=== PATIENT | male | born 1965 | race Caucasian/White ===

== ENCOUNTER 2020-02-22 12:11 | Inpatient (IN) ==
[2020-02-22] MEDS ORDERED: Naloxone 0.4 MG/ML INJ IVP PRN (18:45)
[2020-02-22 19:50] LABS: Basophils # 0.1 K/mcL (0.0-0.2); Basophils % 0.6 %; Eosinophils # 0.1 K/mcL (0.0-0.6); Eosinophils % 0.9 %; Hemoglobin 11.8 g/dL (12.9-16.9); Immature Granulocytes % 0.3 % (0-4); Lymphocytes # 2.2 K/mcL (0.6-4.6); Lymphocytes % 20.8 %; Mean Corpuscular HGB Conc 30.3 g/dL (31.6-35.5); Mean Corpuscular Hemoglobin 23.2 pg (28.0-33.3); Mean Corpuscular Volume 76.8 fL (83.0-100.0); Mean Platelet Volume 10.9 fL (9.4-12.4); Monocytes # 1.3 K/mcL (0.0-1.3); Monocytes % 12.2 %; Neutrophils # 6.9 K/mcL (1.6-8.9); Nucleated Red Blood Cells 0.2 /100 WBC (0); Platelet Count 339 K/mcL (140-400); Red Blood Count 5.08 M/mcL (4.19-5.50); Red Cell Distribution Width 17.7 % (11.5-14.5); Segmented Neutrophils % 65.2 %; White Blood Count 10.6 K/mcL (4.3-11.1)
[2020-02-22 20:03] LABS: INR 5.4; Prothrombin Time 59.6 Seconds (9.4-12.1)
[2020-02-22 20:12] LABS: Albumin 3.7 g/dL (3.5-5.7); Albumin/Globulin Ratio 1.3 (1.1-2.2); BUN/Creatinine Ratio 27 (6-26); Bilirubin,Indirect 2.9 mg/dL (0.0-1.0); Bilirubin,Total 3.9 mg/dL (0.3-1.0); Blood Urea Nitrogen 57 mg/dL (6-20); Calcium 9.4 mg/dL (8.6-10.3); Carbon Dioxide 22 mEq/L (23-29); Chloride 94 mEq/L (98-107); Globulin 2.8 g/dL (2.4-3.5); Glucose 130 mg/dL (70-105); Osmolality,Calculated 288 (280-300); Potassium 5.7 mEq/L (3.5-5.1); Sodium 130 mEq/L (136-145); Total Protein 6.5 g/dL (6.4-8.9); eGFR For African Americans 40 (> 60); eGFR For Non-African Americans 33 (> 60)
[2020-02-22 20:50] LABS: Acetaminophen < 10 mcg/mL (10-20); Magnesium 2.4 mg/dL (1.6-2.6)
[2020-02-22] MEDS ORDERED: Insulin Human Regular 10 UNIT in 0.9 % Sodium Chloride 10 ML IV ONE (21:57)
[2020-02-22] MEDS ORDERED: *HR* Dextrose 50 % in Water (Vial) 50 ML VIAL IVP ONE (21:58)
[2020-02-22] MEDS: Lactulose Oral Soln 20 GM/30 ML UDC PO STA ×2 (21:59→22:02)
[2020-02-22 23:47] LABS: Hepatitis B Core IgM Nonreactive (Nonreactive)
[2020-02-22 23:48] LABS: Hepatitis C Virus Antibody Nonreactive (Nonreactive)
[2020-02-22 23:49] LABS: Hepatitis A Antibody IgM Nonreactive (Nonreactive)
[2020-02-22 23:50] LABS: Hepatitis B Surface Antigen Nonreactive (Nonreactive)
[2020-02-23 00:42] LABS: Adenovirus Not Detected (Not Detect); Bordetella Pertussis Not Detected (Not Detect); Chlamydophila pneumoniae Not Detected (Not Detect); Coronavirus 229E Not Detected (Not Detect); Coronavirus HKU1 Not Detected (Not Detect); Coronavirus NL63 Not Detected (Not Detect); Coronavirus OC43 Not Detected (Not Detect); Human Metapneumovirus Not Detected (Not Detect); Human Rhinovirus/Enterovirus Not Detected (Not Detect); Influenza A Subtype 2009 H1 Not Detected (Not Detect); Influenza B Not Detected (Not Detect); Mycoplasma pneumoniae Not Detected (Not Detect); Parainfluenza Virus 1 Not Detected (Not Detect); Parainfluenza Virus 2 Not Detected (Not Detect); Parainfluenza Virus 3 Not Detected (Not Detect); Parainfluenza Virus 4 Not Detected (Not Detect); Respiratory Syncytial Virus Not Detected (Not Detect); SARS-CoV-2 Not Detected (Not Detect)
[2020-02-23 01:05] LABS: Basophils % 0.4 %; Eosinophils % 0.4 %; Hematocrit 34.6 % (37.5-50.1); Hemoglobin 10.4 g/dL (12.9-16.9); Immature Granulocytes % 0.4 % (0-4); Lymphocytes # 1.7 K/mcL (0.6-4.6); Lymphocytes % 17.7 %; Mean Corpuscular HGB Conc 30.1 g/dL (31.6-35.5); Mean Corpuscular Hemoglobin 22.7 pg (28.0-33.3); Mean Corpuscular Volume 75.5 fL (83.0-100.0); Mean Platelet Volume 10.9 fL (9.4-12.4); Monocytes # 1.5 K/mcL (0.0-1.3); Monocytes % 15.1 %; Neutrophils # 6.4 K/mcL (1.6-8.9); Platelet Count 296 K/mcL (140-400); Red Blood Count 4.58 M/mcL (4.19-5.50); Red Cell Distribution Width 17.2 % (11.5-14.5); White Blood Count 9.6 K/mcL (4.3-11.1)
[2020-02-23 01:23] LABS: INR 4.8; Prothrombin Time 52.7 Seconds (9.4-12.1)
[2020-02-23 01:24] LABS: Calcium 9.1 mg/dL (8.6-10.3); Potassium 4.6 mEq/L (3.5-5.1)
[2020-02-23] MEDS: hydrOXYzine pamoate 25 MG CAPSULE PO PRN ×3 (04:05→21:30)
[2020-02-23 07:31] LABS: Calcium 9.1 mg/dL (8.6-10.3); Potassium 4.8 mEq/L (3.5-5.1)
[2020-02-23] MEDS: Albumin 25% 25gram/100mL 25 GM/100 ML IV.SOLN IVPB SCH ×2 (11:04→16:49)
[2020-02-23 12:05] LABS: Bilirubin,Urine Negative (Negative); Blood,Urine Negative (Negative); Clarity,Urine Clear (Clear); Color,Urine Yellow (Yellow); Glucose,Urine (UA) Normal (Normal); Ketones,Urine Negative (Negative); Leukocyte Esterase,Urine Negative (Negative); Nitrite,Urine Negative (Negative); PH,Urine 5.5 pH Units (5.0-8.0); Protein,Urine Trace mg/dL (Neg-Trace); Specific Gravity,Urine 1.022 (1.010-1.025); Urobilinogen,Urine Normal (Normal)
[2020-02-23 12:28] LABS: Albumin 3.7 g/dL (3.5-5.7); Albumin/Globulin Ratio 1.4 (1.1-2.2); Bilirubin,Indirect 3.2 mg/dL (0.0-1.0); Bilirubin,Total 4.2 mg/dL (0.3-1.0); Globulin 2.6 g/dL (2.4-3.5); Total Protein 6.3 g/dL (6.4-8.9)
[2020-02-23] MEDS: *HR* OxyCODONE Immed Rel 5 MG TABLET PO PRN ×2 (14:53→21:29)
[2020-02-23] MEDS: Ondansetron 4 MG/2 ML VIAL IVP PRN (18:12)
[2020-02-23] MEDS ORDERED: *HR* Promethazine 25 MG/ML VIAL IM PRN (22:56)
[2020-02-23] MEDS ORDERED: *HR* LORazepam 2 MG/ML VIAL IVP ONE (23:59)
[2020-02-24] MEDS: Albumin 25% 25gram/100mL 25 GM/100 ML IV.SOLN IVPB SCH ×2 (00:11→07:42)
[2020-02-24] MEDS ORDERED: OLANZapine 10 MG VIAL IM ONE (02:16)
[2020-02-24 02:43] LABS: Basophils % 0.3 %; Eosinophils % 0.3 %; Hematocrit 33.7 % (37.5-50.1); Hemoglobin 10.1 g/dL (12.9-16.9); Immature Granulocytes % 0.3 % (0-4); Lymphocytes # 1.8 K/mcL (0.6-4.6); Lymphocytes % 18.6 %; Mean Corpuscular Volume 76.8 fL (83.0-100.0); Monocytes % 10.5 %; Neutrophils # 6.9 K/mcL (1.6-8.9); Platelet Count 296 K/mcL (140-400); Red Blood Count 4.39 M/mcL (4.19-5.50); Red Cell Distribution Width 17.2 % (11.5-14.5); White Blood Count 9.9 K/mcL (4.3-11.1)
[2020-02-24 02:49] LABS: INR 4.7; Prothrombin Time 51.6 Seconds (9.4-12.1)
[2020-02-24 03:04] LABS: Albumin 4.2 g/dL (3.5-5.7); Albumin/Globulin Ratio 1.7 (1.1-2.2); Bilirubin,Direct 1.1 mg/dL (0.0-0.2); Bilirubin,Indirect 3.4 mg/dL (0.0-1.0); Bilirubin,Total 4.5 mg/dL (0.3-1.0); Globulin 2.5 g/dL (2.4-3.5); Total Protein 6.7 g/dL (6.4-8.9)
[2020-02-24 03:07] LABS: Calcium 9.4 mg/dL (8.6-10.3); Magnesium 2.6 mg/dL (1.6-2.6); Potassium 4.4 mEq/L (3.5-5.1)
[2020-02-24 03:16] LABS: Thyroid Stimulating Hormone 14.247 mcIU/mL (0.340-5.600)
[2020-02-24 03:28] LABS: Folate > 22.3 ng/mL (3.0-16.0); Vitamin B12 > 1500 pg/mL (250-1100)
[2020-02-24] MEDS: Sennosides/Docusate Sodium TABLET PO SCH (07:43)
[2020-02-24] MEDS ORDERED: Piperacillin/Tazobactam 3.375 GM in 0.9 % Sodium Chloride Mini Bag 100 ML IVPB SCH (08:00)
[2020-02-24] MEDS ORDERED: 0.9 % Sodium Chloride 1,000 ML IV ONE ×2 (08:38→11:36)
[2020-02-24] MEDS: Metoprolol XL (24 HR) Succ 25 MG TAB.ER.24H PO SCH (13:34)
[2020-02-24] MEDS ORDERED: 0.9 % Sodium Chloride 500 ML ONE (16:46)
[2020-02-24] MEDS ORDERED: Morphine Sulfate 2 MG/ML SYRINGE IVP ONE (20:39)
[2020-02-24] MEDS: Piperacillin/Tazobactam 3.375 GM in 0.9 % Sodium Chloride Mini Bag 100 ML IVPB SCH (20:55)
[2020-02-25] MEDS: Morphine Sulfate 2 MG/ML SYRINGE IVP PRN ×3 (00:10→19:55)
[2020-02-25] MEDS: Piperacillin/Tazobactam 3.375 GM in 0.9 % Sodium Chloride Mini Bag 100 ML IVPB SCH ×3 (01:43→17:41)
[2020-02-25] MEDS: Multivit/Ca/Min/Fe/FA 1 TAB TABLET PO SCH (07:59)
[2020-02-25] MEDS: Metoprolol XL (24 HR) Succ 25 MG TAB.ER.24H PO SCH (07:59)
[2020-02-25] MEDS: Sennosides/Docusate Sodium TABLET PO SCH (07:59)
[2020-02-25 10:56] LABS: Basophils % 0.2 %; Eosinophils # 0.1 K/mcL (0.0-0.6); Eosinophils % 0.8 %; Hematocrit 32.8 % (37.5-50.1); Hemoglobin 9.7 g/dL (12.9-16.9); Immature Granulocytes % 0.6 % (0-4); Lymphocytes # 1.3 K/mcL (0.6-4.6); Lymphocytes % 14.4 %; Mean Corpuscular HGB Conc 29.6 g/dL (31.6-35.5); Mean Corpuscular Hemoglobin 22.5 pg (28.0-33.3); Mean Corpuscular Volume 75.9 fL (83.0-100.0); Mean Platelet Volume 10.9 fL (9.4-12.4); Monocytes # 0.8 K/mcL (0.0-1.3); Monocytes % 8.7 %; Neutrophils # 6.6 K/mcL (1.6-8.9); Platelet Count 262 K/mcL (140-400); Red Blood Count 4.32 M/mcL (4.19-5.50); Red Cell Distribution Width 17.3 % (11.5-14.5); Segmented Neutrophils % 75.3 %; White Blood Count 8.8 K/mcL (4.3-11.1)
[2020-02-25 11:06] LABS: INR 2.9; Prothrombin Time 33.1 Seconds (9.4-12.1)
[2020-02-25 11:13] LABS: Albumin 3.8 g/dL (3.5-5.7); Albumin/Globulin Ratio 1.6 (1.1-2.2); Bilirubin,Direct 1.2 mg/dL (0.0-0.2); Bilirubin,Indirect 3.7 mg/dL (0.0-1.0); Bilirubin,Total 4.9 mg/dL (0.3-1.0); Globulin 2.4 g/dL (2.4-3.5); Magnesium 2.5 mg/dL (1.6-2.6); Potassium 3.8 mEq/L (3.5-5.1); Total Protein 6.2 g/dL (6.4-8.9)
[2020-02-25] MEDS ORDERED: Iron Sucrose Complex 200 MG in 0.9 % Sodium Chloride 100 ML IVPB ONE (13:07)
[2020-02-25 14:15] LABS: Potassium,Urine 57.8 mEq/L
[2020-02-25] MEDS: hydrOXYzine pamoate 25 MG CAPSULE PO PRN (20:01)
[2020-02-26] MEDS: Morphine Sulfate 2 MG/ML SYRINGE IVP PRN ×5 (00:02→19:54)
[2020-02-26] MEDS: Piperacillin/Tazobactam 3.375 GM in 0.9 % Sodium Chloride Mini Bag 100 ML IVPB SCH ×3 (01:40→17:01)
[2020-02-26 03:52] LABS: White Blood Count 8.8 K/mcL (4.3-11.1)
[2020-02-26 03:53] LABS: Basophils % 0.3 %; Eosinophils # 0.1 K/mcL (0.0-0.6); Eosinophils % 1.1 %; Hematocrit 33.3 % (37.5-50.1); Hemoglobin 9.9 g/dL (12.9-16.9); Immature Granulocytes % 0.3 % (0-4); Lymphocytes # 1.6 K/mcL (0.6-4.6); Lymphocytes % 17.6 %; Mean Corpuscular HGB Conc 29.7 g/dL (31.6-35.5); Mean Corpuscular Hemoglobin 23.1 pg (28.0-33.3); Mean Corpuscular Volume 77.8 fL (83.0-100.0); Mean Platelet Volume 11.2 fL (9.4-12.4); Monocytes % 11.6 %; Neutrophils # 6.1 K/mcL (1.6-8.9); Platelet Count 257 K/mcL (140-400); Red Blood Count 4.28 M/mcL (4.19-5.50); Red Cell Distribution Width 17.5 % (11.5-14.5); Segmented Neutrophils % 69.1 %
[2020-02-26 04:18] LABS: Albumin 3.7 g/dL (3.5-5.7); Albumin/Globulin Ratio 1.5 (1.1-2.2); Bilirubin,Direct 1.2 mg/dL (0.0-0.2); Bilirubin,Indirect 2.8 mg/dL (0.0-1.0); Calcium 8.9 mg/dL (8.6-10.3); Globulin 2.4 g/dL (2.4-3.5); Magnesium 2.4 mg/dL (1.6-2.6); Total Protein 6.1 g/dL (6.4-8.9)
[2020-02-26 04:31] LABS: INR 2.7
[2020-02-26] MEDS: Multivit/Ca/Min/Fe/FA 1 TAB TABLET PO SCH (08:19)
[2020-02-26] MEDS: Sennosides/Docusate Sodium TABLET PO SCH (08:19)
[2020-02-26] MEDS: hydrOXYzine pamoate 25 MG CAPSULE PO PRN ×2 (08:19→17:02)
[2020-02-26] MEDS: Metoprolol XL (24 HR) Succ 25 MG TAB.ER.24H PO SCH (08:19)
[2020-02-26] MEDS: Ondansetron 4 MG/2 ML VIAL IVP PRN (16:26)
[2020-02-27] MEDS: Morphine Sulfate 2 MG/ML SYRINGE IVP PRN ×5 (00:11→20:22)
[2020-02-27] MEDS: Piperacillin/Tazobactam 3.375 GM in 0.9 % Sodium Chloride Mini Bag 100 ML IVPB SCH ×3 (02:54→17:09)
[2020-02-27 06:45] LABS: Basophils % 0.2 %; Eosinophils # 0.1 K/mcL (0.0-0.6); Eosinophils % 1.1 %; Hematocrit 30.9 % (37.5-50.1); Hemoglobin 9.3 g/dL (12.9-16.9); Immature Granulocytes % 0.5 % (0-4); Lymphocytes # 1.6 K/mcL (0.6-4.6); Lymphocytes % 19.2 %; Mean Corpuscular HGB Conc 30.1 g/dL (31.6-35.5); Mean Corpuscular Hemoglobin 22.7 pg (28.0-33.3); Mean Corpuscular Volume 75.6 fL (83.0-100.0); Mean Platelet Volume 10.8 fL (9.4-12.4); Monocytes # 0.9 K/mcL (0.0-1.3); Monocytes % 11.5 %; Neutrophils # 5.5 K/mcL (1.6-8.9); Nucleated Red Blood Cells 0.5 /100 WBC (0); Platelet Count 217 K/mcL (140-400); Red Blood Count 4.09 M/mcL (4.19-5.50); Red Cell Distribution Width 17.9 % (11.5-14.5); Segmented Neutrophils % 67.5 %; White Blood Count 8.2 K/mcL (4.3-11.1)
[2020-02-27 06:46] LABS: INR 2.4
[2020-02-27 07:04] LABS: Albumin 3.6 g/dL (3.5-5.7); Albumin/Globulin Ratio 1.6 (1.1-2.2); Bilirubin,Indirect 2.2 mg/dL (0.0-1.0); Bilirubin,Total 3.2 mg/dL (0.3-1.0); Calcium 8.9 mg/dL (8.6-10.3); Magnesium 2.5 mg/dL (1.6-2.6); Potassium 3.7 mEq/L (3.5-5.1); Total Protein 5.8 g/dL (6.4-8.9)
[2020-02-27 07:05] LABS: Globulin 2.2 g/dL (2.4-3.5)
[2020-02-27] MEDS: Metoprolol XL (24 HR) Succ 25 MG TAB.ER.24H PO SCH (08:52)
[2020-02-27] MEDS: Sennosides/Docusate Sodium TABLET PO SCH (08:52)
[2020-02-27] MEDS: Multivit/Ca/Min/Fe/FA 1 TAB TABLET PO SCH (08:52)
[2020-02-27] MEDS: hydrOXYzine pamoate 25 MG CAPSULE PO PRN (13:30)
[2020-02-27] MEDS ORDERED: Famotidine 20 MG/2 ML VIAL IVP ONE (16:14)
[2020-02-27] MEDS: Pantoprazole 40 MG VIAL IVP SCH (17:11)
[2020-02-28] MEDS: Morphine Sulfate 2 MG/ML SYRINGE IVP PRN ×5 (01:34→22:46)
[2020-02-28] MEDS: Piperacillin/Tazobactam 3.375 GM in 0.9 % Sodium Chloride Mini Bag 100 ML IVPB SCH ×3 (01:35→18:14)
[2020-02-28] MEDS: Pantoprazole 40 MG VIAL IVP SCH ×2 (05:40→18:15)
[2020-02-28] MEDS: Sennosides/Docusate Sodium TABLET PO SCH (10:21)
[2020-02-28] MEDS: Multivit/Ca/Min/Fe/FA 1 TAB TABLET PO SCH (10:21)
[2020-02-28] MEDS: Furosemide 20 MG TABLET PO SCH ×2 (12:54→18:15)
[2020-02-28 14:17] LABS: Basophils % 0.2 %; Eosinophils # 0.1 K/mcL (0.0-0.6); Eosinophils % 0.9 %; Hematocrit 34.5 % (37.5-50.1); Hemoglobin 10.1 g/dL (12.9-16.9); Immature Granulocytes % 0.6 % (0-4); Lymphocytes # 1.8 K/mcL (0.6-4.6); Lymphocytes % 17.6 %; Mean Corpuscular HGB Conc 29.3 g/dL (31.6-35.5); Mean Corpuscular Hemoglobin 23.1 pg (28.0-33.3); Mean Corpuscular Volume 78.8 fL (83.0-100.0); Mean Platelet Volume 11.2 fL (9.4-12.4); Monocytes % 10.1 %; Neutrophils # 7.2 K/mcL (1.6-8.9); Nucleated Red Blood Cells 0.2 /100 WBC (0); Platelet Count 235 K/mcL (140-400); Red Blood Count 4.38 M/mcL (4.19-5.50); Red Cell Distribution Width 18.8 % (11.5-14.5); Segmented Neutrophils % 70.6 %; White Blood Count 10.2 K/mcL (4.3-11.1)
[2020-02-28 14:25] LABS: Calcium 8.8 mg/dL (8.6-10.3); Magnesium 2.5 mg/dL (1.6-2.6); Potassium 3.8 mEq/L (3.5-5.1)
[2020-02-28] MEDS: Spironolactone 25 MG TABLET PO SCH (18:15)
[2020-02-29] MEDS: Piperacillin/Tazobactam 3.375 GM in 0.9 % Sodium Chloride Mini Bag 100 ML IVPB SCH ×3 (03:39→17:04)
[2020-02-29] MEDS: Morphine Sulfate 2 MG/ML SYRINGE IVP PRN ×5 (05:58→23:50)
[2020-02-29] MEDS: Pantoprazole 40 MG VIAL IVP SCH ×2 (05:58→17:04)
[2020-02-29] MEDS: Multivit/Ca/Min/Fe/FA 1 TAB TABLET PO SCH (09:19)
[2020-02-29] MEDS: Metoprolol XL (24 HR) Succ 25 MG TAB.ER.24H PO SCH (09:19)
[2020-02-29] MEDS: Sennosides/Docusate Sodium TABLET PO SCH (09:19)
[2020-02-29] MEDS: Spironolactone 25 MG TABLET PO SCH (09:19)
[2020-02-29] MEDS: Furosemide 20 MG TABLET PO SCH ×2 (09:19→17:04)
[2020-02-29 10:00] LABS: Basophils % 0.1 %; Eosinophils # 0.1 K/mcL (0.0-0.6); Eosinophils % 1.6 %; Hematocrit 31.5 % (37.5-50.1); Hemoglobin 9.5 g/dL (12.9-16.9); Immature Granulocytes % 0.5 % (0-4); Lymphocytes # 1.3 K/mcL (0.6-4.6); Lymphocytes % 15.2 %; Mean Corpuscular HGB Conc 30.2 g/dL (31.6-35.5); Mean Corpuscular Hemoglobin 23.5 pg (28.0-33.3); Mean Corpuscular Volume 77.8 fL (83.0-100.0); Mean Platelet Volume 10.9 fL (9.4-12.4); Monocytes # 0.8 K/mcL (0.0-1.3); Monocytes % 8.9 %; Neutrophils # 6.3 K/mcL (1.6-8.9); Platelet Count 202 K/mcL (140-400); Red Blood Count 4.05 M/mcL (4.19-5.50); Red Cell Distribution Width 19.2 % (11.5-14.5); Segmented Neutrophils % 73.7 %; White Blood Count 8.6 K/mcL (4.3-11.1)
[2020-02-29 10:06] LABS: INR 1.8; Prothrombin Time 20.4 Seconds (9.4-12.1)
[2020-02-29 10:26] LABS: Calcium 8.6 mg/dL (8.6-10.3); Magnesium 2.4 mg/dL (1.6-2.6); Potassium 3.7 mEq/L (3.5-5.1)
[2020-02-29] MEDS: Ondansetron 4 MG/2 ML VIAL IVP PRN (23:49)
[2020-02-29] MEDS: hydrOXYzine pamoate 25 MG CAPSULE PO PRN (23:49)
[2020-03-01] MEDS: Piperacillin/Tazobactam 3.375 GM in 0.9 % Sodium Chloride Mini Bag 100 ML IVPB SCH ×3 (01:41→18:33)
[2020-03-01 03:31] LABS: Basophils % 0.3 %; Eosinophils # 0.1 K/mcL (0.0-0.6); Eosinophils % 1.8 %; Hematocrit 31.9 % (37.5-50.1); Hemoglobin 9.5 g/dL (12.9-16.9); Immature Granulocytes % 0.3 % (0-4); Lymphocytes # 1.3 K/mcL (0.6-4.6); Lymphocytes % 16.5 %; Mean Corpuscular HGB Conc 29.8 g/dL (31.6-35.5); Mean Corpuscular Volume 77.2 fL (83.0-100.0); Mean Platelet Volume 11.1 fL (9.4-12.4); Neutrophils # 5.5 K/mcL (1.6-8.9); Platelet Count 188 K/mcL (140-400); Red Blood Count 4.13 M/mcL (4.19-5.50); Red Cell Distribution Width 19.6 % (11.5-14.5); Segmented Neutrophils % 69.1 %; White Blood Count 7.9 K/mcL (4.3-11.1)
[2020-03-01 03:34] LABS: INR 1.8; Prothrombin Time 20.6 Seconds (9.4-12.1)
[2020-03-01 03:49] LABS: Calcium 8.5 mg/dL (8.6-10.3); Magnesium 2.3 mg/dL (1.6-2.6); Potassium 3.8 mEq/L (3.5-5.1)
[2020-03-01] MEDS: Pantoprazole 40 MG VIAL IVP SCH ×2 (05:44→16:28)
[2020-03-01] MEDS: Sennosides/Docusate Sodium TABLET PO SCH (08:06)
[2020-03-01] MEDS: Furosemide 20 MG TABLET PO SCH ×2 (08:06→16:28)
[2020-03-01] MEDS: Spironolactone 25 MG TABLET PO SCH (08:06)
[2020-03-01] MEDS: Multivit/Ca/Min/Fe/FA 1 TAB TABLET PO SCH (08:07)
[2020-03-01] MEDS: Metoprolol XL (24 HR) Succ 25 MG TAB.ER.24H PO SCH (08:07)
[2020-03-01] MEDS: Morphine Sulfate 2 MG/ML SYRINGE IVP PRN ×3 (08:08→21:29)
[2020-03-01 12:43] LABS: Albumin 3.4 g/dL (3.5-5.7); Albumin/Globulin Ratio 1.5 (1.1-2.2); Bilirubin,Direct 0.8 mg/dL (0.0-0.2); Bilirubin,Indirect 1.5 mg/dL (0.0-1.0); Bilirubin,Total 2.3 mg/dL (0.3-1.0); Globulin 2.3 g/dL (2.4-3.5); Total Protein 5.7 g/dL (6.4-8.9)
[2020-03-01] MEDS: Ondansetron 4 MG/2 ML VIAL IVP PRN (16:37)
[2020-03-01] MEDS ORDERED: Piperacillin/Tazobactam 3.375 GM VIAL ONE (18:31)
[2020-03-01 19:04] LABS: Total Protein,Peritoneal Fluid 3.1 g/dL
[2020-03-01 19:17] LABS: RBC,Peritoneal Fluid 5000 RBC/mcL
[2020-03-01 19:45] LABS: Appearance of Peritoneal Fl CLEAR (Clear)
[2020-03-01 20:46] LABS: Basophils,Peritoneal Fluid 0 %; Eosinophils,Peritoneal Fluid 0 %
[2020-03-01] MEDS: hydrOXYzine pamoate 25 MG CAPSULE PO PRN (21:30)
[2020-03-02] MEDS: Piperacillin/Tazobactam 3.375 GM in 0.9 % Sodium Chloride Mini Bag 100 ML IVPB SCH (01:29)
[2020-03-02] MEDS: Morphine Sulfate 2 MG/ML SYRINGE IVP PRN ×5 (01:30→20:21)
[2020-03-02 05:06] LABS: INR 1.6; Prothrombin Time 18.5 Seconds (9.4-12.1)
[2020-03-02 05:07] LABS: Basophils % 0.1 %; Bilirubin,Urine Negative (Negative); Blood,Urine Negative (Negative); Clarity,Urine Clear (Clear); Color,Urine Light-Yellow (Yellow); Eosinophils # 0.1 K/mcL (0.0-0.6); Eosinophils % 1.6 %; Glucose,Urine (UA) Normal (Normal); Hematocrit 32.7 % (37.5-50.1); Hemoglobin 9.7 g/dL (12.9-16.9); Immature Granulocytes % 0.4 % (0-4); Ketones,Urine Negative (Negative); Leukocyte Esterase,Urine Negative (Negative); Lymphocytes # 1.5 K/mcL (0.6-4.6); Lymphocytes % 20.2 %; Mean Corpuscular HGB Conc 29.7 g/dL (31.6-35.5); Mean Corpuscular Volume 77.5 fL (83.0-100.0); Mean Platelet Volume 10.8 fL (9.4-12.4); Monocytes # 0.9 K/mcL (0.0-1.3); Monocytes % 12.2 %; Neutrophils # 4.9 K/mcL (1.6-8.9); Nitrite,Urine Negative (Negative); Nucleated Red Blood Cells 0.3 /100 WBC (0); Platelet Count 164 K/mcL (140-400); Protein,Urine Trace mg/dL (Neg-Trace); Red Blood Count 4.22 M/mcL (4.19-5.50); Red Cell Distribution Width 19.3 % (11.5-14.5); Segmented Neutrophils % 65.5 %; Specific Gravity,Urine 1.016 (1.010-1.025); Urobilinogen,Urine Normal (Normal); White Blood Count 7.5 K/mcL (4.3-11.1)
[2020-03-02 05:23] LABS: Albumin 3.3 g/dL (3.5-5.7); Albumin/Globulin Ratio 1.4 (1.1-2.2); Bilirubin,Direct 0.7 mg/dL (0.0-0.2); Bilirubin,Indirect 1.2 mg/dL (0.0-1.0); Bilirubin,Total 1.9 mg/dL (0.3-1.0); Calcium 8.2 mg/dL (8.6-10.3); Globulin 2.3 g/dL (2.4-3.5); Magnesium 2.2 mg/dL (1.6-2.6); Potassium 3.6 mEq/L (3.5-5.1); Total Protein 5.6 g/dL (6.4-8.9)
[2020-03-02] MEDS: Pantoprazole 40 MG VIAL IVP SCH (05:54)
[2020-03-02] MEDS ORDERED: Albumin Human 5% 12.5 GM/250 ML IV.SOLN IVPB ONE (07:58)
[2020-03-02] MEDS: Furosemide 20 MG TABLET PO SCH ×2 (09:04→17:20)
[2020-03-02] MEDS: Spironolactone 25 MG TABLET PO SCH (09:04)
[2020-03-02] MEDS: Metoprolol XL (24 HR) Succ 25 MG TAB.ER.24H PO SCH (09:04)
[2020-03-02] MEDS: Multivit/Ca/Min/Fe/FA 1 TAB TABLET PO SCH (09:04)
[2020-03-02] MEDS: Sennosides/Docusate Sodium TABLET PO SCH (09:04)
[2020-03-02] MEDS: Neosporin OINT 15 GM TUBE TP SCH ×2 (15:45→20:28)
[2020-03-02] MEDS: hydrOXYzine pamoate 25 MG CAPSULE PO PRN (20:21)
[2020-03-03] MEDS ORDERED: Methyl Salicylate/Menthol 85 APPL/85 GM TUBE TP PRN (00:22)
[2020-03-03] MEDS: Morphine Sulfate 2 MG/ML SYRINGE IVP PRN ×5 (00:32→19:34)
[2020-03-03] MEDS ORDERED: Methyl Salicylate/Menthol 57 APPL/57 GM TUBE TP PRN (00:36)
[2020-03-03 04:59] LABS: Basophils % 0.4 %; Eosinophils # 0.2 K/mcL (0.0-0.6); Eosinophils % 2.4 %; Hematocrit 32.7 % (37.5-50.1); Hemoglobin 9.8 g/dL (12.9-16.9); Immature Granulocytes % 0.4 % (0-4); Lymphocytes # 1.8 K/mcL (0.6-4.6); Lymphocytes % 23.1 %; Mean Corpuscular Hemoglobin 23.1 pg (28.0-33.3); Mean Corpuscular Volume 76.9 fL (83.0-100.0); Mean Platelet Volume 11.2 fL (9.4-12.4); Monocytes # 1.1 K/mcL (0.0-1.3); Monocytes % 13.6 %; Neutrophils # 4.7 K/mcL (1.6-8.9); Nucleated Red Blood Cells 0.3 /100 WBC (0); Platelet Count 166 K/mcL (140-400); Red Blood Count 4.25 M/mcL (4.19-5.50); Red Cell Distribution Width 19.2 % (11.5-14.5); Segmented Neutrophils % 60.1 %; White Blood Count 7.9 K/mcL (4.3-11.1)
[2020-03-03 05:02] LABS: INR 1.5; Prothrombin Time 16.9 Seconds (9.4-12.1)
[2020-03-03] MEDS: hydrOXYzine pamoate 25 MG CAPSULE PO PRN (05:06)
[2020-03-03 05:17] LABS: Albumin 3.3 g/dL (3.5-5.7); Albumin/Globulin Ratio 1.4 (1.1-2.2); Bilirubin,Direct 0.6 mg/dL (0.0-0.2); Bilirubin,Indirect 0.8 mg/dL (0.0-1.0); Bilirubin,Total 1.4 mg/dL (0.3-1.0); Globulin 2.3 g/dL (2.4-3.5); Total Protein 5.6 g/dL (6.4-8.9)
[2020-03-03 05:19] LABS: BUN/Creatinine Ratio 28 (6-26); Blood Urea Nitrogen 38 mg/dL (6-20); Carbon Dioxide 22 mEq/L (23-29); Chloride 97 mEq/L (98-107); Glucose 118 mg/dL (70-105); Magnesium 2.1 mg/dL (1.6-2.6); Osmolality,Calculated 278 (280-300); Potassium 3.9 mEq/L (3.5-5.1); Sodium 129 mEq/L (136-145); eGFR For African Americans > 60 (> 60); eGFR For Non-African Americans 56 (> 60)
[2020-03-03] MEDS: Furosemide 20 MG TABLET PO SCH ×2 (08:45→17:23)
[2020-03-03] MEDS: Spironolactone 25 MG TABLET PO SCH (08:45)
[2020-03-03] MEDS: Sennosides/Docusate Sodium TABLET PO SCH (08:45)
[2020-03-03] MEDS: Multivit/Ca/Min/Fe/FA 1 TAB TABLET PO SCH (08:45)
[2020-03-03] MEDS: Metoprolol XL (24 HR) Succ 25 MG TAB.ER.24H PO SCH (08:45)
[2020-03-03] MEDS: Neosporin OINT 15 GM TUBE TP SCH ×3 (08:56→20:10)
[2020-03-04] MEDS: Morphine Sulfate 2 MG/ML SYRINGE IVP PRN (00:12)
[2020-03-04 00:41] VITALS: BP 121/70
== END 2020-03-04 00:13 | disposition short-term general hospital (02) | DRG 279 ==
LOC: 3ANU → SUATTDRO 23:17
PROVIDERS: ADMIT General Practice; ATTEND Pharmacist